=== PATIENT | female | born 1935 | race Caucasian/White ===

== ENCOUNTER 2018-05-16 11:31 | Emergency (ER) | payer BC, MEDICARE ==
[2018-05-16] MEDS ORDERED: SODIUM CHLORIDE 0.9% 500 ML 500 ML IV STA (12:06)
[2018-05-16] MEDS ORDERED: SODIUM CHLORIDE 0.9% 1,000 ML IV STA (12:06)
--- NOTE | 2018-05-16 12:09 | ED ---
Altered Mental Status HPI - General Chief Complaint: Altered Mental Status Stated Complaint: altered/poss UTI Time Seen by Provider: 05/16/18 11:42 Source: family, RN notes reviewed Mode of arrival: ambulatory Limitations: no limitations - History of Present Illness Initial Comments: This is a 82-year-old female with a history of Alzheimer's dementia anemia CVA peripheral neuropathy was brought in by family members for evaluation of increased confusion over last week. She apparently has them straight a family members increased confusion sundowning she has been throwing things in the house he threw away her is diabetic medication this morning. She does seen things including floating things in her coffee which are not there and complained of other things that are not there. she is not eating much except for perales and yogurt he is not drinking fluids and is not cooperating with family members. Her urine does demonstrate a strong odor but she is uncooperative with any evaluation at home. No reports of nausea vomiting diarrhea no reports of fever or cough. MD Complaint: altered mental status, confusion - Related Data Home Medications Medication Instructions Recorded Confirmed Aspirin 81 mg PO DAILY 06/02/14 05/16/18 Digoxin [Digitek] 125 mcg PO DAILY 06/02/14 05/16/18 Furosemide [Lasix] 40 mg PO DAILY 06/02/14 05/16/18 Metoprolol Succinate [Toprol XL] 75 mg PO DAILY 06/02/14 05/16/18 Multivitamins, Thera [Multivitamin] 1 each PO DAILY 06/02/14 05/16/18 Potassium Chloride ER [K-Dur 20] 20 meq PO DAILY 06/02/14 05/16/18 Levothyroxine Sodium [Synthroid] 25 mcg PO DAILY 05/16/18 05/16/18 Metoprolol Succinate [Toprol XL] 50 mg PO HS 05/16/18 05/16/18 Warfarin [Coumadin] 1 mg PO SUMOTUSA 05/16/18 05/16/18 Previous Rx's Medication Instructions Recorded Cephalexin [Keflex] 500 mg PO Q6HR #40 cap 05/16/18 Allergies Allergy/AdvReac Type Severity Reaction Status Date / Time No Known Allergies Allergy Verified 05/16/18 12:32 Review of Systems ROS Statement: Those systems with pertinent positive or pertinent negative responses have been documented in the HPI. ROS Other: All systems not noted in ROS Statement are negative. Past Medical History Past Medical History: Atrial Fibrillation, Cancer, Heart Failure, CVA/TIA, Dementia, Hyperlipidemia, Hypertension, Myocardial Infarction ([place]) Additional Past Medical History / Comment(s): uterine cancer Last Myocardial Infarction Date:: 2008 History of Any Multi-Drug Resistant Organisms: None Reported Past Surgical History: Adenoidectomy, Hysterectomy, Tonsillectomy Additional Past Surgical History / Comment(s): early dementia s/sx noted per family previously on aricept,d/cd per physician Past Anesthesia/Blood Transfusion Reactions: No Reported Reaction Past Psychological History: No Psychological Hx Reported Smoking Status: Never smoker Past Alcohol Use History: None Reported Past Drug Use History: None Reported - Past Family History Son(s) Family Medical History: Cancer Additional Family Medical History / Comment(s): pancreatic Father Family Medical History: Cancer Additional Family Medical History / Comment(s): lung Mother Family Medical History: Cancer Additional Family Medical History / Comment(s): uterine General Exam - General Exam Comments Initial Comments: This is a well-developed sec appearing female who is awake and alert but confused. Limitations: no limitations General appearance: alert, in no apparent distress Head exam: Present: atraumatic, normocephalic, normal inspection Eye exam: Present: normal appearance, PERRL, EOMI. Absent: scleral icterus, conjunctival injection, periorbital swelling ENT exam: Present: mucous membranes dry Neck exam: Present: normal inspection. Absent: tenderness, meningismus, lymphadenopathy Respiratory exam: Present: normal lung sounds bilaterally. Absent: respiratory distress, wheezes, rales, rhonchi, stridor Cardiovascular Exam: Present: irregular rhythm, systolic murmur (Murmur at the mitral region. History of the same.). Absent: diastolic murmur, rubs, gallop, clicks GI/Abdominal exam: Present: soft, normal bowel sounds. Absent: distended, tenderness, guarding, rebound, rigid Extremities exam: Present: normal inspection, full ROM, normal capillary refill. Absent: tenderness, pedal edema, joint swelling, calf tenderness Back exam: Present: normal inspection Neurological exam: Present: alert, altered, CN II-XII intact Psychiatric exam: Present: normal mood, flat affect Skin exam: Present: warm, dry, intact, normal color. Absent: rash Course Vital Signs 01/05/19 11:38 Temperature 97.7 F Pulse Rate 66 Respiratory 18 Rate Blood Pressure 142/84 O2 Sat by Pulse 100 Oximetry Medical Decision Making - Medical Decision Making Patient does have evidence of UTI and dehydration. I did discuss findings with the patient's family members. I did offer admission he would like to take her mother home. Will be placed on oral medication I did advise increase oral fluids and return if any difficulty. - Lab Data Result diagrams: 05/16/18 12:10 05/16/18 12:10 Lab Results 05/16/18 05/16/18 05/16/18 Range/Units 12:10 12:10 12:10 WBC 8.6 (3.8-10.6) k/uL RBC 3.33 L (3.80-5.40) m/uL Hgb 9.6 L (11.4-16.0) gm/dL Hct 30.2 L (34.0-46.0) % MCV 90.6 D (80.0-100.0) fL MCH 28.9 (25.0-35.0) pg MCHC 31.9 (31.0-37.0) g/dL RDW 14.3 (11.5-15.5) % Plt Count 291 (150-450) k/uL Neutrophils % 59 % Lymphocytes % 30 % Monocytes % 7 % Eosinophils % 2 % Basophils % 0 % Neutrophils # 5.1 (1.3-7.7) k/uL Lymphocytes # 2.6 (1.0-4.8) k/uL Monocytes # 0.6 (0-1.0) k/uL Eosinophils # 0.1 (0-0.7) k/uL Basophils # 0.0 (0-0.2) k/uL Hypochromasia Marked Poikilocytosis Slight Sodium (137-145) mmol/L Potassium (3.5-5.1) mmol/L Chloride (98-107) mmol/L Carbon Dioxide (22-30) mmol/L Anion Gap mmol/L BUN (7-17) mg/dL Creatinine (0.52-1.04) mg/dL Est GFR (CKD-EPI)AfAm (>60 ml/min/1.73 sqM) Est GFR (CKD-EPI)NonAf (>60 ml/min/1.73 sqM) Glucose (74-99) mg/dL Calcium (8.4-10.2) mg/dL Magnesium (1.6-2.3) mg/dL Total Bilirubin (0.2-1.3) mg/dL AST (14-36) U/L ALT (9-52) U/L Alkaline Phosphatase (38-126) U/L Ammonia <9 (<30) umol/L Total Creatine Kinase 129 (30-135) U/L CK-MB (CK-2) 1.4 (0.0-2.4) ng/mL CK-MB (CK-2) Rel Index 1.1 Troponin I 0.023 (0.000-0.034) ng/mL Total Protein (6.3-8.2) g/dL Albumin (3.5-5.0) g/dL Urine Color Urine Appearance (Clear) Urine pH (5.0-8.0) Ur Specific [place] (1.001-1.035) Urine Protein (Negative) Urine Glucose (UA) (Negative) Urine Ketones (Negative) Urine Blood (Negative) Urine Nitrite (Negative) Urine Bilirubin (Negative) Urine Urobilinogen (<2.0) mg/dL Ur Leukocyte Esterase (Negative) Urine RBC (0-5) /hpf Urine WBC (0-5) /hpf Ur Squamous Epith Cells (0-4) /hpf Urine Bacteria (None) /hpf Urine Mucus (None) /hpf 05/16/18 05/16/18 Range/Units 12:10 12:10 WBC (3.8-10.6) k/uL RBC (3.80-5.40) m/uL Hgb (11.4-16.0) gm/dL Hct (34.0-46.0) % MCV (80.0-100.0) fL MCH (25.0-35.0) pg MCHC (31.0-37.0) g/dL RDW (11.5-15.5) % Plt Count (150-450) k/uL Neutrophils % % Lymphocytes % % Monocytes % % Eosinophils % % Basophils % % Neutrophils # (1.3-7.7) k/uL Lymphocytes # (1.0-4.8) k/uL Monocytes # (0-1.0) k/uL Eosinophils # (0-0.7) k/uL Basophils # (0-0.2) k/uL Hypochromasia Poikilocytosis Sodium 141 (137-145) mmol/L Potassium 4.9 (3.5-5.1) mmol/L Chloride 110 H (98-107) mmol/L Carbon Dioxide 20 L (22-30) mmol/L Anion Gap 11 mmol/L BUN 18 H (7-17) mg/dL Creatinine 1.23 H (0.52-1.04) mg/dL Est GFR (CKD-EPI)AfAm 48 (>60 ml/min/1.73 sqM) Est GFR (CKD-EPI)NonAf 41 (>60 ml/min/1.73 sqM) Glucose 152 H (74-99) mg/dL Calcium 10.5 H (8.4-10.2) mg/dL Magnesium 2.0 (1.6-2.3) mg/dL Total Bilirubin 0.6 (0.2-1.3) mg/dL AST 32 (14-36) U/L ALT 26 (9-52) U/L Alkaline Phosphatase 81 (38-126) U/L Ammonia (<30) umol/L Total Creatine Kinase (30-135) U/L CK-MB (CK-2) (0.0-2.4) ng/mL CK-MB (CK-2) Rel Index Troponin I (0.000-0.034) ng/mL Total Protein 6.9 (6.3-8.2) g/dL Albumin 3.8 (3.5-5.0) g/dL Urine Color Yellow Urine Appearance Cloudy H (Clear) Urine pH 6.0 (5.0-8.0) Ur Specific [place] 1.012 (1.001-1.035) Urine Protein Trace H (Negative) Urine Glucose (UA) Negative (Negative) Urine Ketones Negative (Negative) Urine Blood Small H (Negative) Urine Nitrite Positive H (Negative) Urine Bilirubin Negative (Negative) Urine Urobilinogen 3.0 (<2.0) mg/dL Ur Leukocyte Esterase Large H (Negative) Urine RBC 2 (0-5) /hpf Urine WBC >182 H (0-5) /hpf Ur Squamous Epith Cells 1 (0-4) /hpf Urine Bacteria Moderate H (None) /hpf Urine Mucus Rare H (None) /hpf - EKG Data -: EKG Interpreted by Me EKG shows normal: sinus rhythm - Radiology Data Radiology results: report reviewed (Review the imaging no acute findings), image reviewed Disposition Clinical Impression: Urinary tract infection, Delirium due to general medical condition, Dehydration , Renal insufficiency, Chronic anemia Disposition: HOME SELF-CARE Condition: Stable Instructions: Altered Mental Status (ED), Urinary Tract Infection in Women (ED) , Dehydration (ED) Prescriptions: Cephalexin [Keflex] 500 mg PO Q6HR #40 cap Is patient prescribed a controlled substance at d/c from ED?: No Referrals: Mihir Mckoy DO [Primary Care Provider] - 1-2 days
[2018-05-16 12:40] LABS: Basophils % (A) 0 %; Eosinophils # (A) 0.1 k/uL (0-0.7); Eosinophils % (A) 2 %; HCT 30.2 % (34.0-46.0); HGB 9.6 gm/dL (11.4-16.0); Hypochromasia Marked; Lymphocytes # (A) 2.6 k/uL (1.0-4.8); Lymphocytes % (A) 30 %; MCH 28.9 pg (25.0-35.0); MCHC 31.9 g/dL (31.0-37.0); Mean Platelet Volume 7.1; Monocytes # (A) 0.6 k/uL (0-1.0); Monocytes % (A) 7 %; Neutrophils # (A) 5.1 k/uL (1.3-7.7); Neutrophils % (A) 59 %; Platelet Count 291 k/uL (150-450); Poikilocytosis Slight; RBC 3.33 m/uL (3.80-5.40); RDW 14.3 % (11.5-15.5); WBC 8.6 k/uL (3.8-10.6)
[2018-05-16 12:49] LABS: Calcium 10.5 mg/dL (8.4-10.2); Potassium 4.9 mmol/L (3.5-5.1)
[2018-05-16 12:50] LABS: Albumin 3.8 g/dL (3.5-5.0); Total Bilirubin 0.6 mg/dL (0.2-1.3); Total Protein 6.9 g/dL (6.3-8.2)
[2018-05-16 12:53] LABS: MCV 90.6 fL (80.0-100.0)
--- NOTE | 2018-05-16 13:07 | CT ---
EXAMINATION TYPE: CT brain wo con DATE OF EXAM: 05/16/2018 COMPARISON: Previous study dated 06/29/2014. HISTORY: Altered mental status CT DLP: 117.4 mGycm Automated exposure control for dose reduction was used. FINDINGS: There are generalized changes of sulcal prominence and ventriculomegaly, compatible with atrophic ajit nge. There is moderate periventricular white matter lucency, compatible with chronic white matter isc hemic change. There is extensive vascular calcification. There is no acute focal lesion, mass effect or midline shift identified. I do not see evidence of intracranial blood. Visualized portions of the paranasal sinuses and mastoids are clear. The bony calvarium is intact. IMPRESSION: 1. NO ACUTE INTRACRANIAL ABNORMALITY. 2. ATROPHIC CHANGE. 3. CHRONIC WHITE MATTER ISCHEMIC CHANGE.
[2018-05-16 13:18] LABS: Creatine Kinase MB 1.4 ng/mL (0.0-2.4); Troponin I 0.023 ng/mL (0.000-0.034)
[2018-05-16 14:08] LABS: Appearance,Urine Cloudy (Clear); Bacteria,Urine Moderate /hpf; Bilirubin,Urine Negative (Negative); Blood,Urine Small (Negative); Color,Urine Yellow; Glucose,Urine (UA) Negative (Negative); Ketones,Urine Negative (Negative); Leukocyte Esterase,Urine Large (Negative); Mucus,Urine Rare /hpf; Nitrite,Urine Positive (Negative); Protein,Urine Trace (Negative); RBC,Urine 2 /hpf (0-5); Specific Gravity,Urine 1.012 (1.001-1.035); Squamous Epithelial Cell,Urine 1 /hpf (0-4); WBC,Urine >182 /hpf (0-5)
[2018-05-16 15:19] VITALS: BP 174/88; PULSE 55; RESP 16; TEMP 98.1
--- NOTE | 2018-05-18 06:23 | XR ---
EXAMINATION TYPE: XR chest 2V DATE OF EXAM: 05/16/2018 COMPARISON: 06/02/2014 HISTORY: Altered mental status. Cough TECHNIQUE: Frontal and lateral views of the chest are obtained. FINDINGS: There is coarsening of the interstitial pulmonary markings. Heart is slightly enlarged. Th ere is no gross heart failure. There is no pleural effusion. Thoracic aorta is atheromatous. Bony tho rax appears intact. There is osteopenia. IMPRESSION: Mild pulmonary fibrosis. No heart failure. No adverse change overall compared to old bouchra m.
== END 2018-05-16 15:24 | disposition home or self-care (01) ==
LOC: EC 11:31
DX: E86.0 Dehydration (principal); N39.0 Urinary tract infection, site not specified; F05 Delirium due to known physiological condition; N28.9 Disorder of kidney and ureter, unspecified; D64.9 Anemia, unspecified; I48.91 Unspecified atrial fibrillation; I11.0 Hypertensive heart disease with heart failure; I50.9 Heart failure, unspecified; I25.2 Old myocardial infarction; Z86.73 Personal history of transient ischemic attack (TIA), and cerebral infarction without residual deficits; Z85.42 Personal history of malignant neoplasm of other parts of uterus; G30.9 Alzheimer's disease, unspecified; F02.80 Dementia in other diseases classified elsewhere, unspecified severity, without behavioral disturbance, psychotic disturbance, mood disturbance, and anxiety; Z79.01 Long term (current) use of anticoagulants; Z79.82 Long term (current) use of aspirin; Z79.899 Other long term (current) drug therapy
CPT/HCPCS: 99285 ×2; 96365 ×2; 36415; 93005; 80053; 82140; 82550; 82553; 83735; 84484; 85025; 81001; 71046; 70450; J0696

== ENCOUNTER 2018-07-24 13:48 | Inpatient (IN) | payer MEDICARE ==
[2018-07-24] MEDS ORDERED: KETOROLAC 30 MG/ML 1 ML VIAL IVP STA (14:25)
[2018-07-24] MEDS ORDERED: SODIUM CHLORIDE 0.9% 500 ML 500 ML IV STA (14:25)
--- NOTE | 2018-07-24 14:32 | ED ---
General Adult HPI - General Chief complaint: Back Pain/Injury Stated complaint: Back pain, SOB Time Seen by Provider: 07/24/18 14:00 Source: patient, RN notes reviewed Mode of arrival: ambulatory Limitations: no limitations - History of Present Illness Initial comments: This is an 82-year-old female who is brought in by the granddaughter's for multiple reasons. They think she may have a urinary tract infection. Patient also complains of some mid back pain secondary to falling onto her buttocks earlier in the week. Patient also has been noted to be somewhat short of breath per one of the granddaughter's. Patient herself has no current complaints but does state in the morning when she wakes up she has quite a bit of back pain. Patient denies any chest pain or palpitations. Patient has had no recent fevers or chills according to the granddaughter's. Patient has not complained of any abdominal pain in his been no nausea or vomiting. Patient has not fallen and hit her head or her neck. - Related Data Home Medications Medication Instructions Recorded Confirmed Aspirin 81 mg PO DAILY 06/02/14 07/24/18 Digoxin [Digitek] 125 mcg PO DAILY 06/02/14 07/24/18 Furosemide [Lasix] 40 mg PO DAILY PRN 06/02/14 07/24/18 Multivitamins, Thera [Multivitamin] 1 tab PO DAILY 06/02/14 07/24/18 Potassium Chloride ER [K-Dur 20] 20 meq PO DAILY PRN 06/02/14 07/24/18 Warfarin [Coumadin] 1 mg PO SUMOWEFR 05/16/18 07/24/18 Carvedilol 25 mg PO BID 07/24/18 07/24/18 Nitrofurantoin Monohyd/M-Cryst 100 mg PO BID 07/24/18 07/24/18 [Macrobid] Warfarin [Coumadin] 2 mg PO TUTHSA 07/24/18 07/24/18 Allergies Allergy/AdvReac Type Severity Reaction Status Date / Time No Known Allergies Allergy Verified 07/24/18 15:16 Review of Systems ROS Statement: Those systems with pertinent positive or pertinent negative responses have been documented in the HPI. ROS Other: All systems not noted in ROS Statement are negative. Past Medical History Past Medical History: Atrial Fibrillation, Cancer, Heart Failure, CVA/TIA, Dementia, Hyperlipidemia, Hypertension, Myocardial Infarction ([place]) Additional Past Medical History / Comment(s): uterine cancer Last Myocardial Infarction Date:: 2008 History of Any Multi-Drug Resistant Organisms: None Reported Past Surgical History: Adenoidectomy, Hysterectomy, Tonsillectomy Additional Past Surgical History / Comment(s): early dementia s/sx noted per family previously on aricept,d/cd per physician Past Anesthesia/Blood Transfusion Reactions: No Reported Reaction Past Psychological History: No Psychological Hx Reported Smoking Status: Never smoker Past Alcohol Use History: None Reported Past Drug Use History: None Reported - Past Family History Son(s) Family Medical History: Cancer Additional Family Medical History / Comment(s): pancreatic Father Family Medical History: Cancer Additional Family Medical History / Comment(s): lung Mother Family Medical History: Cancer Additional Family Medical History / Comment(s): uterine General Exam - General Exam Comments Initial Comments: GENERAL: Patient is well-developed and well-nourished. Patient is nontoxic and well- hydrated and is in no acute distress. ENT: Neck is soft and supple. No significant lymphadenopathy is noted. Oropharynx is clear. Moist mucous membranes. Neck has full range of motion without eliciting any pain. EYES: The sclera were anicteric and conjunctiva were pink and moist. Extraocular movements were intact and pupils were equal round and reactive to light. Eyelids were unremarkable. PULMONARY: Unlabored respirations. Good breath sounds bilaterally. No audible rales rhonchi or wheezing was noted. CARDIOVASCULAR: There is a regular rate and rhythm without any murmurs gallops or rubs. ABDOMEN: Soft and nontender with normal bowel sounds. No palpable organomegaly was noted. There is no palpable pulsatile mass. SKIN: Skin is clear with no lesions or rashes and otherwise unremarkable. NEUROLOGIC: Patient is alert and oriented 2. Cranial nerves II through XII are grossly intact. Motor and sensory are also intact. Normal speech, volume and content. Symmetrical smile. MUSCULOSKELETAL: Normal extremities with adequate strength and full range of motion. No lower extremity swelling or edema. No calf tenderness. Patient had no back tenderness on palpation LYMPHATICS: No significant lymphadenopathy is noted PSYCHIATRIC: Normal psychiatric evaluation. Limitations: no limitations Course Vital Signs 07/24/18 07/24/18 14:02 15:41 Temperature 98.2 F Pulse Rate 50 L 52 L Respiratory 18 16 Rate Blood Pressure 123/52 145/80 O2 Sat by Pulse 98 97 Oximetry Medical Decision Making - Medical Decision Making EKG shows atrial fibrillation at 50 bpm QRS is 84 Q-T intervals 448 QTC is 408. EKG shows no ST segment elevation or depression. Chest x-ray shows no acute abnormality. X-ray lumbar spine and thoracic spine show no acute injury. Patient's hemoglobin was 7.0 I gave the patient 1 unit of packed red blood cells. Patient's heart rate also took down to low 40s while on the monitor. - Lab Data Result diagrams: 07/24/18 14:39 07/24/18 14:39 Lab Results 07/24/18 07/24/18 07/24/18 Range/Units 14:39 14:39 14:39 WBC 6.6 (3.8-10.6) k/uL RBC 3.16 L (3.80-5.40) m/uL Hgb 7.0 L (11.4-16.0) gm/dL Hct 23.4 L (34.0-46.0) % MCV 73.9 L (80.0-100.0) fL MCH 22.1 L (25.0-35.0) pg MCHC 29.9 L (31.0-37.0) g/dL RDW 17.5 H (11.5-15.5) % Plt Count 212 (150-450) k/uL Neutrophils % 52 % Lymphocytes % 28 % Monocytes % 11 % Eosinophils % 6 % Basophils % 1 % Neutrophils # 3.4 (1.3-7.7) k/uL Lymphocytes # 1.8 (1.0-4.8) k/uL Monocytes # 0.7 (0-1.0) k/uL Eosinophils # 0.4 (0-0.7) k/uL Basophils # 0.0 (0-0.2) k/uL Hypochromasia Marked Poikilocytosis Slight Anisocytosis Slight Microcytosis Moderate Sodium 139 (137-145) mmol/L Potassium 5.0 (3.5-5.1) mmol/L Chloride 108 H (98-107) mmol/L Carbon Dioxide 21 L (22-30) mmol/L Anion Gap 10 mmol/L BUN 22 H (7-17) mg/dL Creatinine 1.24 H (0.52-1.04) mg/dL Est GFR (CKD-EPI)AfAm 47 (>60 ml/min/1.73 sqM) Est GFR (CKD-EPI)NonAf 41 (>60 ml/min/1.73 sqM) Glucose 108 H (74-99) mg/dL Calcium 10.0 (8.4-10.2) mg/dL Magnesium 1.9 (1.6-2.3) mg/dL Total Bilirubin 0.6 (0.2-1.3) mg/dL AST 21 (14-36) U/L ALT 23 (9-52) U/L Alkaline Phosphatase 81 (38-126) U/L NT-Pro-B Natriuret Pep 3640 pg/mL Total Protein 6.4 (6.3-8.2) g/dL Albumin 3.5 (3.5-5.0) g/dL Urine Color Urine Appearance (Clear) Urine pH (5.0-8.0) Ur Specific [place] (1.001-1.035) Urine Protein (Negative) Urine Glucose (UA) (Negative) Urine Ketones (Negative) Urine Blood (Negative) Urine Nitrite (Negative) Urine Bilirubin (Negative) Urine Urobilinogen (<2.0) mg/dL Ur Leukocyte Esterase (Negative) Digoxin ng/mL 07/24/18 07/24/18 Range/Units 14:39 15:29 WBC (3.8-10.6) k/uL RBC (3.80-5.40) m/uL Hgb (11.4-16.0) gm/dL Hct (34.0-46.0) % MCV (80.0-100.0) fL MCH (25.0-35.0) pg MCHC (31.0-37.0) g/dL RDW (11.5-15.5) % Plt Count (150-450) k/uL Neutrophils % % Lymphocytes % % Monocytes % % Eosinophils % % Basophils % % Neutrophils # (1.3-7.7) k/uL Lymphocytes # (1.0-4.8) k/uL Monocytes # (0-1.0) k/uL Eosinophils # (0-0.7) k/uL Basophils # (0-0.2) k/uL Hypochromasia Poikilocytosis Anisocytosis Microcytosis Sodium (137-145) mmol/L Potassium (3.5-5.1) mmol/L Chloride (98-107) mmol/L Carbon Dioxide (22-30) mmol/L Anion Gap mmol/L BUN (7-17) mg/dL Creatinine (0.52-1.04) mg/dL Est GFR (CKD-EPI)AfAm (>60 ml/min/1.73 sqM) Est GFR (CKD-EPI)NonAf (>60 ml/min/1.73 sqM) Glucose (74-99) mg/dL Calcium (8.4-10.2) mg/dL Magnesium (1.6-2.3) mg/dL Total Bilirubin (0.2-1.3) mg/dL AST (14-36) U/L ALT (9-52) U/L Alkaline Phosphatase (38-126) U/L NT-Pro-B Natriuret Pep pg/mL Total Protein (6.3-8.2) g/dL Albumin (3.5-5.0) g/dL Urine Color Dark Yellow Urine Appearance Clear (Clear) Urine pH 5.5 (5.0-8.0) Ur Specific [place] 1.016 (1.001-1.035) Urine Protein Trace H (Negative) Urine Glucose (UA) Negative (Negative) Urine Ketones Negative (Negative) Urine Blood Negative (Negative) Urine Nitrite Negative (Negative) Urine Bilirubin Negative (Negative) Urine Urobilinogen 4.0 (<2.0) mg/dL Ur Leukocyte Esterase Negative (Negative) Digoxin 1.8 ng/mL Disposition Clinical Impression: Bradycardia, Dyspnea, Anemia Disposition: ADMITTED IP TO THIS [facility] Referrals: Mihir Mckoy DO [Primary Care Provider] - 1-2 days Time of Disposition: 16:10
[2018-07-24 15:01] LABS: Anisocytosis Slight; Basophils % (A) 1 %; Eosinophils # (A) 0.4 k/uL (0-0.7); Eosinophils % (A) 6 %; HCT 23.4 % (34.0-46.0); Hypochromasia Marked; Lymphocytes # (A) 1.8 k/uL (1.0-4.8); Lymphocytes % (A) 28 %; MCH 22.1 pg (25.0-35.0); MCHC 29.9 g/dL (31.0-37.0); MCV 73.9 fL (80.0-100.0); Microcytosis Moderate; Monocytes # (A) 0.7 k/uL (0-1.0); Monocytes % (A) 11 %; Neutrophils # (A) 3.4 k/uL (1.3-7.7); Neutrophils % (A) 52 %; Platelet Count 212 k/uL (150-450); Poikilocytosis Slight; RBC 3.16 m/uL (3.80-5.40); RDW 17.5 % (11.5-15.5); WBC 6.6 k/uL (3.8-10.6)
[2018-07-24 15:12] LABS: Albumin 3.5 g/dL (3.5-5.0); Magnesium 1.9 mg/dL (1.6-2.3); Total Bilirubin 0.6 mg/dL (0.2-1.3); Total Protein 6.4 g/dL (6.3-8.2)
--- NOTE | 2018-07-24 15:12 | XR ---
EXAMINATION TYPE: XR chest 2V DATE OF EXAM: 07/24/2018 COMPARISON: 05/16/2018 TECHNIQUE: PA and lateral views submitted. HISTORY: Pain FINDINGS: The lungs are clear and there is no pneumothorax, pleural effusion, or focal pneumonia. Heart is en larged and is atherosclerotic change of the aorta. No pneumothorax. Hypertrophic and degenerative ajit nge of the vertebral column. Diffuse osteopenia. Atherosclerotic change aorta. IMPRESSION: 1. Cardiomegaly with no definite acute infiltrate. Correlate for COPD..
--- NOTE | 2018-07-24 15:14 | XR ---
EXAM TYPE: LUMBAR SPINE X RAY SERIES COMPARISON: NONE HISTORY: Pain TECHNIQUE: 4 views are submitted. FINDINGS: Alignment is anatomic. The pedicles are intact. The transverse processes are intact. There is no s pondylolysis or spondylolisthesis. Diffuse osteopenia noted. There are vascular calcifications and s urgical clips. Arthropathy of the right SI joint. Facet arthropathy L5-S1 and there is multilevel deg enerative disc disease with most marked findings at L4-5 and L5-S1. IMPRESSION: 1. Diffuse osteopenia with multilevel facet arthropathy and degenerative disc disease. No compression deformities identified..
--- NOTE | 2018-07-24 15:15 | XR ---
EXAMINATION TYPE: XR thoracic spine 2V DATE OF EXAM: 07/24/2018 COMPARISON: NONE HISTORY: Pain Alignment is anatomic. There is no compression deformities. Diffuse osteopenia noted. There is multi level degenerative disc disease. Atherosclerotic change of the aorta. No definite compression deformi ties. Degenerative change lower cervical spine. IMPRESSION: 1. Diffuse osteopenia and multilevel severe degenerative disc disease.
[2018-07-24 15:34] LABS: Appearance,Urine Clear (Clear); Bilirubin,Urine Negative (Negative); Blood,Urine Negative (Negative); Color,Urine Dark Yellow; Glucose,Urine (UA) Negative (Negative); Ketones,Urine Negative (Negative); Leukocyte Esterase,Urine Negative (Negative); Nitrite,Urine Negative (Negative); PH, Urine 5.5 (5.0-8.0); Protein,Urine Trace (Negative); Specific Gravity,Urine 1.016 (1.001-1.035)
[2018-07-24 16:08] LABS: INR 2.1 (<1.2); Partial Thromboplastin Time 26.2 sec (22.0-30.0); Prothrombin Time 20.3 sec (9.0-12.0)
[2018-07-24] MEDS ORDERED: SODIUM CHLORIDE 0.9% 1,000 ML IV ONE (16:10)
[2018-07-24] MEDS ORDERED: ZOLPIDEM 5 MG TAB PO PRN (22:50)
[2018-07-24] MEDS ORDERED: WARFARIN 1 MG TAB PO SCH (23:00)
[2018-07-25 03:10] LABS: Anisocytosis Slight; Basophils % (A) 0 %; Eosinophils # (A) 0.5 k/uL (0-0.7); Eosinophils % (A) 5 %; HCT 24.7 % (34.0-46.0); HGB 7.4 gm/dL (11.4-16.0); Hypochromasia Marked; Lymphocytes # (A) 1.8 k/uL (1.0-4.8); Lymphocytes % (A) 21 %; MCH 23.1 pg (25.0-35.0); MCV 76.8 fL (80.0-100.0); Mean Platelet Volume 6.3; Microcytosis Slight; Monocytes # (A) 0.7 k/uL (0-1.0); Monocytes % (A) 8 %; Neutrophils # (A) 5.3 k/uL (1.3-7.7); Neutrophils % (A) 63 %; Platelet Count 209 k/uL (150-450); Poikilocytosis Moderate; RBC 3.22 m/uL (3.80-5.40); WBC 8.4 k/uL (3.8-10.6)
[2018-07-25 03:39] LABS: Digoxin 1.1 ng/mL
--- NOTE | 2018-07-25 08:33 | P.HPIM ---
History of Present Illness H&P Date: 07/25/18 This is a 78-year-old female with a past medical history of atrial fibrillation, hypertension, hyperlipidemia, coronary artery disease and dementia. Patient was brought to the emergency department by her granddaughter for back pain secondary to a fall earlier in the week. Family states patient has progressively been declining over the last month she's had over a 15 pound weight loss, has been more confused and falling at least 3 times a week. Her hemoglobin was 7.0, she is on Coumadin for anticoagulation for her atrial fibrillation, INR was 2.1, PTT 20.3. She did receive 1 unit of packed red blood cells. Repeat hemoglobin 7.4, hematocrit 24.7, BUN 22, creatinine 1.24, stool occult was negative, urinalysis was negative for any infection. EKG shows atrial fibrillation with slow response at 50 bpm, no ST segment elevation or depression. Chest x-ray did not show any acute abnormalities. Thoracic x-ray showed diffuse osteopenia and multilevel severe degenerative disc disease, lumbar spine show diffuse osteopenia with multilevel facet arthropathy and degenerative disc disease, no compression deformities noted. Patient denies any chest pain, positive for shortness breath and audible wheezing, no palpitations, no nausea, vomiting, or diarrhea or dark tarry stools, no abdominal pain. Cardiology consulted for a.fib with bradycardia. Review of Systems Constitutional: Reports fatigue, Reports weakness, Denies chills, Denies fever Ears, nose, mouth and throat: Denies dysphagia, Denies epistaxis, Denies headache, Denies nasal congestion, Denies nose pain, Denies odynophagia Cardiovascular: Reports irregular heart beat, Reports shortness of breath, Denies edema, Denies lightheadedness, Denies orthopnea, Denies palpitations, Denies rapid heart beat, Denies syncope Respiratory: Reports dyspnea, Reports wheezing, Denies cough with sputum, Denies pain Gastrointestinal: Denies change in bowel habits, Denies coffee ground emesis, Denies constipation, Denies diarrhea, Denies dyspepsia, Denies heartburn, Denies hematemesis, Denies indigestion, Denies melena, Denies nausea, Denies vomiting Genitourinary: Denies dysuria, Denies hematuria, Denies nocturia, Denies urgency Musculoskeletal: Denies atrophy, Denies frequent falls, Denies gait dysfunction, Denies leg numbness/tingling Integumentary: Denies acne, Denies growths, Denies lesions, Denies rash, Denies wounds Neurological: Reports gait dysfunction, Reports weakness, Denies confusion, Denies headaches, Denies memory loss, Denies migraines, Denies numbness, Denies paralysis, Denies paresthesias, Denies seizures, Denies syncope Past Medical History Past Medical History: Atrial Fibrillation, Cancer, Heart Failure, CVA/TIA, Dementia, Hyperlipidemia, Hypertension, Myocardial Infarction ([place]) Additional Past Medical History / Comment(s): uterine cancer Last Myocardial Infarction Date:: 2008 History of Any Multi-Drug Resistant Organisms: None Reported Past Surgical History: Adenoidectomy, Hysterectomy, Tonsillectomy Additional Past Surgical History / Comment(s): early dementia s/sx noted per family previously on aricept,d/cd per physician Past Anesthesia/Blood Transfusion Reactions: No Reported Reaction Past Psychological History: No Psychological Hx Reported Smoking Status: Never smoker Past Alcohol Use History: None Reported Past Drug Use History: None Reported - Past Family History Son(s) Family Medical History: Cancer Additional Family Medical History / Comment(s): pancreatic Father Family Medical History: Cancer Additional Family Medical History / Comment(s): lung Mother Family Medical History: Cancer Additional Family Medical History / Comment(s): uterine Medications and Allergies Home Medications Medication Instructions Recorded Confirmed Type Furosemide [Lasix] 40 mg PO DAILY PRN 06/02/14 07/24/18 History Multivitamins, Thera [Multivitamin 1 tab PO DAILY 06/02/14 07/24/18 History (formulary)] Potassium Chloride ER [K-Dur 20] 20 meq PO DAILY PRN 06/02/14 07/24/18 History Acetaminophen Tab [Tylenol] 1,000 mg PO Q8HR PRN 30 Days tab 07/26/18 Rx Azithromycin [Zithromax] 500 mg PO DAILY #3 tab 07/26/18 Rx Carvedilol [Coreg] 6.25 mg PO BID-W/MEALS #60 tab 07/26/18 Rx Multivitamins, Thera [Multivitamin 1 each PO DAILY@1200 tab 07/26/18 Rx (formulary)] amLODIPine [Norvasc] 5 mg PO DAILY #30 tab 07/26/18 Rx Allergies Allergy/AdvReac Type Severity Reaction Status Date / Time No Known Allergies Allergy Verified 07/24/18 15:16 Physical Exam Vitals: Vital Signs Temp Pulse Pulse Resp BP BP Pulse Ox 07/25/18 00:05 17 07/24/18 23:58 97.8 F 67 17 189/77 93 L 07/24/18 20:42 97.9 F 60 16 161/57 96 07/24/18 20:40 97.9 F 60 16 161/57 96 07/24/18 20:20 49 L 16 07/24/18 18:29 97.5 F L 51 L 16 172/93 97 07/24/18 17:59 98.0 F 47 L 16 151/70 97 07/24/18 17:49 98.1 F 46 L 16 162/58 96 07/24/18 17:04 97.4 F L 44 L 16 168/67 97 07/24/18 16:48 97.9 F 46 L 16 158/77 96 07/24/18 15:41 52 L 16 145/80 97 07/24/18 14:02 98.2 F 50 L 18 123/52 98 Intake and Output 07/24/18 07/25/18 07/25/18 22:59 06:59 14:59 Intake Total 1989 Balance 1989 Intake: Intake, IV Titration 1300 Amount Sodium Chloride 0.9% 1, 800 000 ml @ 100 mls/hr IV . Q10H ONE Rx#:[id number] Sodium Chloride 0.9% 500 500 ml 500 ml @ 999 mls/hr IV .Q31M STA Rx#:[id number] Oral 380 Blood Product 310 Rc Pheresis 2 As3 Unit 310 [id number] Other: Voiding Method Toilet # Voids 1 - Constitutional General appearance: average body habitus, cooperative, no acute distress - EENT Eyes: EOMI, PERRLA, normal appearance ENT: normal oropharynx - Neck Neck: no lymphadenopathy, no normal ROM, no thyromegaly - Respiratory Respiratory: bilateral: wheezing, negative: diminished, dullness, rales, rhonchi - Cardiovascular Rhythm: irregularly irregular Heart sounds: normal: S1, S2 - Gastrointestinal General gastrointestinal: no decreased bowel sounds, no distended, no hepatomegaly, normal bowel sounds, no organomegaly, soft, no splenomegaly, no tenderness - Neurologic Neurologic: CNII-XII intact - Musculoskeletal Musculoskeletal: gait normal, generalized weakness, strength equal bilaterally - Psychiatric Pt confused, able to follow simple commands Results CBC & Chem 7: 07/26/18 06:40 07/26/18 06:40 Labs: Abnormal Lab Results - Last 24 Hours (Table) 07/24/18 07/24/18 07/24/18 Range/Units 14:39 14:39 14:39 RBC 3.16 L (3.80-5.40) m/uL Hgb 7.0 L (11.4-16.0) gm/dL Hct 23.4 L (34.0-46.0) % MCV 73.9 L (80.0-100.0) fL MCH 22.1 L (25.0-35.0) pg MCHC 29.9 L (31.0-37.0) g/dL RDW 17.5 H (11.5-15.5) % PT 20.3 H (9.0-12.0) sec INR 2.1 H (<1.2) Chloride 108 H (98-107) mmol/L Carbon Dioxide 21 L (22-30) mmol/L BUN 22 H (7-17) mg/dL Creatinine 1.24 H (0.52-1.04) mg/dL Glucose 108 H (74-99) mg/dL Urine Protein (Negative) Crossmatch 07/24/18 07/24/18 07/25/18 Range/Units 15:29 16:01 02:56 RBC 3.22 L (3.80-5.40) m/uL Hgb 7.4 L (11.4-16.0) gm/dL Hct 24.7 L (34.0-46.0) % MCV 76.8 L (80.0-100.0) fL MCH 23.1 L (25.0-35.0) pg MCHC 30.0 L (31.0-37.0) g/dL RDW 18.0 H (11.5-15.5) % PT (9.0-12.0) sec INR (<1.2) Chloride (98-107) mmol/L Carbon Dioxide (22-30) mmol/L BUN (7-17) mg/dL Creatinine (0.52-1.04) mg/dL Glucose (74-99) mg/dL Urine Protein Trace H (Negative) Crossmatch See Detail Assessment and Plan Plan: 1. Shortness of breath secondary to bronchitis. Chest x-ray clear for any infiltrates, albuterol nebulizers and azithromycin 500 mg daily ordered. 2. Acute blood loss anemia s/p 1 unit of PRBC. Guaiac was negative, had long discussion with family who do not wish to pursue any GI studies at this time. Will hold Coumadin, repeat CBC and transfuse if necessary. 3. Severe protein calorie malnutrition secondary to decreased oral and dietary intake related to dementia. Will encourage oral dietary intake and also offer ensure with meals. 4. Back pain secondary to fall. PT/OT consulted, x-rays did not reveal any acute fracture. 5. Atrial fibrillation with bradycarida. Cardiology consulted, hold digoxin and carvediolol for now, hold anticoagulation due to anemia and increased risk for falls. 6. Hypertension. Carvedilol on hold due to bradycardia will continue to monitor 7. Dementia with worsening symptoms. Not currently on medications, most likely would not provide benefit at this point 8. GERD. Protonix 9. Insomnia. Ambien 5 mg at at bedtime. DVT prophylaxis. SCDs and early ambulation GI prophylaxis. Protonix The above impression and plan of care have been discussed and directed by sign ing physician. Birgit Schuster nurse practitioner acting as scribe for signing physician.
[2018-07-25] MEDS ORDERED: NITROFURANTOIN MONOHYD/M-CRYST 100 MG CAP PO SCH (09:00)
[2018-07-25] MEDS ORDERED: ASPIRIN 81 MG PO SCH (09:00)
[2018-07-25] MEDS: MULTIVITAMINS, THERA 1 EACH TAB PO SCH (10:26)
[2018-07-25] MEDS: AZITHROMYCIN 500 MG TAB PO SCH (10:26)
[2018-07-25] MEDS: FUROSEMIDE 40 MG TAB PO PRN (10:26)
[2018-07-25] MEDS: ALBUTEROL NEBULIZED 2.5 MG/3 ML INHALATION PRN ×2 (11:23→15:14)
--- NOTE | 2018-07-25 13:47 | P.CRDCN ---
History of Present Illness Consult date: 07/25/18 Reason for Consult (text): Bradycardia History of present illness: This is an 82-year-old female patient with past medical history of chronic atrial fibrillation maintained on Coumadin, hypertension, hyperlipidemia, coronary artery disease, dementia. Patient follows with a Dr. 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 Patient has had long-term atrial fibrillation and has been on digoxin for long period of time. Family gives history that Dr. Mckoy placed her on Coreg 2 months ago. She has had bradycardia and last week family decrease the Coreg in half but this was resumed back at full dose by Dr. Mckoy. Patient has continued to have bradycardia for the past couple weeks. Patient came into the hospital due to back pain that seems to be chronic and underwent x-rays of the lumbar spine and thoracic spine that found multilevel severe degenerative disc disease. Patient's initial hemoglobin was low at 7 and patient was transfused 1 unit of packed RBCs. Repeat hemoglobin is at 7.4. Her INR is at 2.1 and she has been continued on Coumadin. TSH 4.130. ProBNP 3640. Urinalysis was negative for infection. Initial dig level was 1.8 and repeat 1.1. Digoxin and Coreg have been on hold. Chest x-ray reveals cardiomegaly with no definite acute infiltrate. Correlate for COPD. Blood pressure 161/75 and pulse ox 96% on room air. Influenza testing has been negative. Patient's heart rates have been running down to 39 during the evening and today in the low 60s. The patient has had increased shortness of breath last evening. EKG reveals atrial fibrillation at rate of 70. Social history: The patient is a nonsmoker, no illicit drug use, no alcohol use. She lives at home with her ample [employer] [place] and has a paid caregiver in the morning family in the evenings. She does not have home O2. No CPAP. Review Of Systems: Constitutional: No fever, reports chills, no night sweats. No weight change. Reports weakness, reports fatigue. No daytime sleepiness. EENT: No headache. No blurred vision or double vision, no loss of vision. Reports loss of Hearing, no ringing in the ears, no dizziness. No nasal drai nage or congestion. No epistaxis. No sore throat. Lungs: Reports shortness of breath, no sputum production. No wheezing. Cardiovascular: No chest pain, no lower extremity edema. No palpitations. No paroxysmal nocturnal dyspnea. No orthopnea. No lightheadedness or dizziness. No syncopal episodes. Abdominal: No abdominal pain. No nausea, vomiting. No diarrhea. No constipation. No bloody or tarry stools. No loss of appetite. Genitourinary: No dysuria, increased frequency, urgency. No urinary retention. Musculoskeletal: No myalgias. No muscle weakness, no gait dysfunction, no frequent falls. No back pain. No neck pain. Integumentary: No wounds, no lesions. No rash or pruritus. No unusual bruising. No change in hair or nails. Neurologic: No aphasia. No facial droop. No change in mentation. No head injury. No headache. No paralysis. No paresthesia. Psychiatric: No depression. No anxiety. No mood swings. Endocrine: No abnormal blood sugars. No weight change. No excessive sweating or thirst. Reports cold intolerance. No weight change. Gen: This is an 82-year-old female. She is in bed and appears to be having mild respiratory distress. HEENT: Head is atraumatic, normocephalic. Pupils equal, round. Sclerae is anicteric. NECK: Supple. No JVD. No lymphadenopathy. No thyromegaly. LUNGS: Diminished bilaterally. No intercostal retractions. HEART: Irregularly irregular. Systolic murmur. ABDOMEN: Soft. Bowel sounds are present. No masses. No tenderness. EXTREMITIES: No pedal edema. No calf tenderness. NEUROLOGICAL: Patient is awake, alert and oriented x3. Cranial nerves 2 through 12 are grossly intact. Assessment: Acute blood loss anemia status post transfusion Significant bradycardia Chronic atrial fibrillation Hypertension Hyperlipidemia Coronary artery disease Shortness of breath secondary to bronchitis Dementia Back pain secondary to severe degenerative disc disease Frequent falls Plan: Digoxin will be discontinued completely Coreg 6.25 mg twice daily will be started tomorrow morning Obtain 2-D echocardiogram and Doppler study to assess cardiac structures and function Discontinue aspirin and Coumadin Please complete full anemia workup. Coumadin will remain on hold. Nurse practitioner note has been reviewed, I agree with documented findings and plan of care. Patient was seen and examined. Past Medical History Past Medical History: Atrial Fibrillation, Cancer, Heart Failure, CVA/TIA, Dementia, Hyperlipidemia, Hypertension, Myocardial Infarction ([place]) Additional Past Medical History / Comment(s): uterine cancer Last Myocardial Infarction Date:: 2008 History of Any Multi-Drug Resistant Organisms: None Reported Past Surgical History: Adenoidectomy, Hysterectomy, Tonsillectomy Additional Past Surgical History / Comment(s): early dementia s/sx noted per family previously on aricept,d/cd per physician Past Anesthesia/Blood Transfusion Reactions: No Reported Reaction Past Psychological History: No Psychological Hx Reported Smoking Status: Never smoker Past Alcohol Use History: None Reported Past Drug Use History: None Reported - Past Family History Son(s) Family Medical History: Cancer Additional Family Medical History / Comment(s): pancreatic Father Family Medical History: Cancer Additional Family Medical History / Comment(s): lung Mother Family Medical History: Cancer Additional Family Medical History / Comment(s): uterine Medications and Allergies Home Medications Medication Instructions Recorded Confirmed Type Aspirin 81 mg PO DAILY 06/02/14 07/24/18 History Digoxin [Digitek] 125 mcg PO DAILY 06/02/14 07/24/18 History Furosemide [Lasix] 40 mg PO DAILY PRN 06/02/14 07/24/18 History Multivitamins, Thera [Multivitamin] 1 tab PO DAILY 06/02/14 07/24/18 History Potassium Chloride ER [K-Dur 20] 20 meq PO DAILY PRN 06/02/14 07/24/18 History Warfarin [Coumadin] 1 mg PO SUMOWEFR 05/16/18 07/24/18 History Carvedilol 25 mg PO BID 07/24/18 07/24/18 History Nitrofurantoin Monohyd/M-Cryst 100 mg PO BID 07/24/18 07/24/18 History [Macrobid] Warfarin [Coumadin] 2 mg PO TUTHSA 07/24/18 07/24/18 History Allergies Allergy/AdvReac Type Severity Reaction Status Date / Time No Known Allergies Allergy Verified 07/24/18 15:16 Physical Exam Vitals: Vital Signs Temp Pulse Pulse Resp BP BP Pulse Ox 07/25/18 10:46 16 07/25/18 10:19 98.2 F 80 16 156/50 97 07/25/18 00:05 17 07/24/18 23:58 97.8 F 67 17 189/77 93 L 07/24/18 20:42 97.9 F 60 16 161/57 96 07/24/18 20:40 97.9 F 60 16 161/57 96 07/24/18 20:20 49 L 16 07/24/18 18:29 97.5 F L 51 L 16 172/93 97 07/24/18 17:59 98.0 F 47 L 16 151/70 97 07/24/18 17:49 98.1 F 46 L 16 162/58 96 07/24/18 17:04 97.4 F L 44 L 16 168/67 97 07/24/18 16:48 97.9 F 46 L 16 158/77 96 07/24/18 15:41 52 L 16 145/80 97 07/24/18 14:02 98.2 F 50 L 18 123/52 98 Intake and Output 07/24/18 07/25/18 07/25/18 22:59 06:59 14:59 Intake Total 1989 Balance 1989 Intake: Intake, IV Titration 1300 Amount Sodium Chloride 0.9% 1, 800 000 ml @ 100 mls/hr IV . Q10H ONE Rx#:[id number] Sodium Chloride 0.9% 500 500 ml 500 ml @ 999 mls/hr IV .Q31M STA Rx#:[id number] Oral 380 Blood Product 310 Rc Pheresis 2 As3 Unit 310 [id number] Other: Voiding Method Toilet # Voids 1 Results 07/25/18 02:56 07/24/18 14:39 Cardiac Enzymes 07/24/18 Range/Units 14:39 AST 21 (14-36) U/L Coagulation 07/24/18 Range/Units 14:39 PT 20.3 H (9.0-12.0) sec APTT 26.2 (22.0-30.0) sec CBC 07/24/18 07/25/18 Range/Units 14:39 02:56 WBC 6.6 8.4 (3.8-10.6) k/uL RBC 3.16 L 3.22 L (3.80-5.40) m/uL Hgb 7.0 L 7.4 L (11.4-16.0) gm/dL Hct 23.4 L 24.7 L (34.0-46.0) % Plt Count 212 209 (150-450) k/uL Comprehensive Metabolic Panel 07/24/18 Range/Units 14:39 Sodium 139 (137-145) mmol/L Potassium 5.0 (3.5-5.1) mmol/L Chloride 108 H (98-107) mmol/L Carbon Dioxide 21 L (22-30) mmol/L BUN 22 H (7-17) mg/dL Creatinine 1.24 H (0.52-1.04) mg/dL Glucose 108 H (74-99) mg/dL Calcium 10.0 (8.4-10.2) mg/dL AST 21 (14-36) U/L ALT 23 (9-52) U/L Alkaline Phosphatase 81 (38-126) U/L Total Protein 6.4 (6.3-8.2) g/dL Albumin 3.5 (3.5-5.0) g/dL Current Medications Generic Name Dose Route Start Last Admin Trade Name Freq PRN Reason Stop Dose Admin Albuterol Sulfate 2.5 mg 07/25/18 09:06 Ventolin Nebulized INHALATION RT-QID PRN Shortness Of Breath Or Wheezing Aspirin 81 mg 07/25/18 09:00 07/25/18 10:26 Aspirin PO 81 mg DAILY ANTONIO Administration Azithromycin 500 mg 07/25/18 09:15 07/25/18 10:26 Zithromax PO 500 mg DAILY ANTONIO Administration Furosemide 40 mg 07/25/18 09:00 07/25/18 10:26 Lasix PO 40 mg DAILY PRN Administration SWELLING Miscellaneous Information 0 each 07/25/18 06:44 Coumadin Per Pharmacy MISCELLANE DIRECTED PRN P& T Multivitamins 1 each 07/25/18 12:00 07/25/18 10:26 Theragran PO 1 each DAILY@1200 [facility] Administration Pantoprazole Sodium 40 mg 07/26/18 07:30 Protonix PO AC-BRKFST [facility] Warfarin Sodium 1 mg 07/25/18 21:00 Coumadin PO DAILY@1800 [facility] Zolpidem Tartrate 5 mg 07/24/18 22:50 07/24/18 23:38 Ambien PO 5 mg HS PRN Administration sleep Intake and Output 07/24/18 07/25/18 07/25/18 22:59 06:59 14:59 Intake Total 1989 Balance 1989 Intake: Intake, IV Titration 1300 Amount Sodium Chloride 0.9% 1, 800 000 ml @ 100 mls/hr IV . Q10H ONE Rx#:[id number] Sodium Chloride 0.9% 500 500 ml 500 ml @ 999 mls/hr IV .Q31M STA Rx#:[id number] Oral 380 Blood Product 310 Rc Pheresis 2 As3 Unit 310 [id number] Other: Voiding Method Toilet # Voids 1 07/25/18 02:56 07/24/18 14:39
[2018-07-25] MEDS ORDERED: ACETAMINOPHEN TAB 500 MG TAB PO PRN (15:15)
[2018-07-25] MEDS ORDERED: NAPROXEN 250 MG TAB PO PRN (16:00)
--- NOTE | 2018-07-25 17:16 | ECHOF ---
Referral Reason:LVF MEASUREMENTS -------- HEIGHT: 154.9 cm WEIGHT: 52.6 kg BP: RVIDd: 2.9 cm (< 3.3) IVSd: 1.4 cm (0.6 - 1.1) LVIDd: 3.4 cm (3.9 - 5.3) LVPWd: 1.8 cm (0.6 - 1.1) IVSs: 1.6 cm LVIDs: 3.2 cm LVPWs: 1.5 cm LA Diam: 6.5 cm (2.7 - 3.8) LAESV Index (A-L): 78.80 ml/m Ao Diam: 3.0 cm (2.0 - 3.7) AV Cusp: 0.7 cm (1.5 - 2.6) LA Diam: 4.9 cm (2.7 - 3.8) MV EXCURSION: 11.063 mm (> 18.000) MV EF SLOPE: 22 mm/s (70 - 150) EPSS: 1.1 cm AV maxP.92 mmHg AV meanP.96 mmHg AR PHT: 397 ms RAP: 15.00 mmHg RVSP: 72.95 mmHg FINDINGS -------- Sinus rhythm. This was a technically adequate study. The left ventricular size is normal. There is moderate concentric left ventricular hypertrophy. O verall left ventricular systolic function is low-normal with, an EF between 50 - 55 %. The right ventricle is normal in size. The left atrium is markedly dilated. LA is severely dilated >40 ml/m2 The right atrial size is normal. Aortic valve is trileaflet and is moderately thickened. There is mild aortic regurgitation. There is moderate aortic stenosis present. Peak/mean gradient across the Aortic Valve is 40.92mmHg / 21. 96mmHg. The mitral valve leaflets are moderate to severely thickened. Moderate mitral regurgitation is pres ent. Moderate mitral stenosis. Moderate to severe tricuspid regurgitation present. There is moderate to severe pulmonary hypertens ion. The right ventricular systolic pressure, as measured by Doppler, is 72.95mmHg. Trace/mild (physiologic) pulmonic regurgitation. The aortic root size is normal. There is no pericardial effusion. CONCLUSIONS -------- 1. The left ventricular size is normal. 2. There is moderate concentric left ventricular hypertrophy. 3. Overall left ventricular systolic function is low-normal with, an EF between 50 - 55 %. 4. The right ventricle is normal in size. 5. The left atrium is markedly dilated. 6. LA is severely dilated >40 ml/m2 7. The right atrial size is normal. 8. Aortic valve is trileaflet and is moderately thickened. 9. There is mild aortic regurgitation. 10. There is moderate aortic stenosis present. 11. Peak/mean gradient across the Aortic Valve is 40.92mmHg / 21.96mmHg. 12. The mitral valve leaflets are moderate to severely thickened. 13. Moderate mitral regurgitation is present. 14. Moderate to severe tricuspid regurgitation present. 15. There is moderate to severe pulmonary hypertension. 16. The right ventricular systolic pressure, as measured by Doppler, is 72.95mmHg. 17. Trace/mild (physiologic) pulmonic regurgitation. 18. The aortic root size is normal. 19. There is no pericardial effusion. [employer]: Rosalba Elliott RDCS
[2018-07-25] MEDS ORDERED: WARFARIN 1 MG TAB PO SCH (21:00)
[2018-07-26 07:26] LABS: Anisocytosis Slight; HCT 24.2 % (34.0-46.0); HGB 7.3 gm/dL (11.4-16.0); Hypochromasia Marked; MCHC 30.4 g/dL (31.0-37.0); MCV 75.6 fL (80.0-100.0); Mean Platelet Volume 6.9; Microcytosis Moderate; Platelet Count 215 k/uL (150-450); Poikilocytosis Moderate; RDW 18.7 % (11.5-15.5); WBC 7.5 k/uL (3.8-10.6)
[2018-07-26] MEDS ORDERED: PANTOPRAZOLE 40 MG TABLET PO SCH (07:30)
[2018-07-26 07:35] LABS: Albumin 3.2 g/dL (3.5-5.0); Calcium 9.7 mg/dL (8.4-10.2); Potassium 4.1 mmol/L (3.5-5.1)
[2018-07-26 07:46] VITALS: BP 175/53; PULSE 61; RESP 17; TEMP 98
[2018-07-26] MEDS: MULTIVITAMINS, THERA 1 EACH TAB PO SCH (08:42)
[2018-07-26] MEDS: AZITHROMYCIN 500 MG TAB PO SCH (08:42)
[2018-07-26] MEDS: FUROSEMIDE 40 MG TAB PO PRN (08:43)
[2018-07-26] MEDS ORDERED: CARVEDILOL 6.25 MG TAB PO SCH (09:00)
[2018-07-26] MEDS ORDERED: amLODIPine 5 MG TAB PO SCH (09:45)
--- NOTE | 2018-07-26 10:32 | P.PN ---
Subjective Progress Note Date: 07/26/18 This is an 82-year-old female patient with past medical history of chronic atrial fibrillation maintained on Coumadin, hypertension, hyperlipidemia, coronary artery disease, dementia. Patient follows with a Dr. Roche in [place] is her admission nurse but she has not been able to follow-up as it is too far for her to travel. Patient has had long-term atrial fibrillation and has been on digoxin for long period of time. Family gives history that Dr. Mckoy placed her on Coreg 2 months ago. She has had bradycardia and last week family decrease the Coreg in half but this was resumed back at full dose by Dr. Mckoy. Patient has continued to have bradycardia for the past couple weeks. Patient came into the hospital due to back pain that seems to be chronic and underwent x-rays of the lumbar spine and thoracic spine that found multilevel severe degenerative disc disease. Patient's initial hemoglobin was low at 7 and patient was transfused 1 unit of packed RBCs. Repeat hemoglobin is at 7.4. Her INR is at 2.1 and she has been continued on Coumadin. TSH 4.130. ProBNP 3640. Urinalysis was negative for infection. Initial dig level was 1.8 and repeat 1.1. Digoxin and Coreg have been on hold. Chest x-ray reveals cardiomegaly with no definite acute infiltrate. Correlate for COPD. Blood pressure 161/75 and pulse ox 96% on room air. Influenza testing has been negative. Patient's heart rates have been running down to 39 during the evening and today in the low 60s. The patient has had increased shortness of breath last evening. EKG reveals atrial fibrillation at rate of 70. Social history: The patient is a nonsmoker, no illicit drug use, no alcohol use. She lives at home with her Complexa and has a paid caregiver in the morning family in the evenings. She does not have home O2. No CPAP. 07/26: Patient's respiratory status is improved from yesterday. She has been up and ambulating with physical therapy in the hallway and seems to do quite well. Patient is seen without oxygen and does not appear dyspneic. Heart rate during the night running 48-50 but did not go any lower. This morning she is running 60s to 70s. Echocardiogram reveals EF of 50-55%, moderate aortic stenosis, moderate mitral regurgitation, moderate to severe tricuspid regurgitation, moderate to severe pulmonary hypertension. Her blood pressure is also elevated at 175/53. We will plan to add amlodipine 5 mg daily. Due to her low hemoglobin and fall risk, do not recommend anticoagulation with Coumadin at this time. This can be reevaluated by her primary admission nurse. Family has known of multi valvular heart disease and plan is for conservative management. hemoglobin today is 7.3, BUN 26 and creatinine 1.24. Physical exam: Gen: This is an 82-year-old female. She is in recliner and appears to be in no respiratory distress. HEENT: Head is atraumatic, normocephalic. Pupils equal, round. Sclerae is anicteric. NECK: Supple. No JVD. No lymphadenopathy. No thyromegaly. LUNGS: Diminished bilaterally. No intercostal retractions. HEART: Irregularly irregular. Systolic murmur. ABDOMEN: Soft. Bowel sounds are present. No masses. No tenderness. EXTREMITIES: No pedal edema. No calf tenderness. NEUROLOGICAL: Patient is awake, alert and oriented x3. Cranial nerves 2 through 12 are grossly intact. Assessment: Acute blood loss anemia status post transfusion Significant bradycardia Chronic atrial fibrillation Hypertension Hyperlipidemia Coronary artery disease Shortness of breath secondary to bronchitis Dementia Back pain secondary to severe degenerative disc disease Frequent falls Valvular heart disease with moderate aortic stenosis, moderate mitral regurgitation, moderate to severe tricuspid regurgitation and moderate to severe pulmonary hypertension Plan: Digoxin will be discontinued completely. Coreg 6.25 mg twice daily to be started today. Discontinue Coumadin due to low hemoglobin and fall risk. To be reevaluated by her admission nurse. Add amlodipine 5 mg daily. Follow-up with primary admission nurse after discharge. Nurse practitioner note has been reviewed, I agree with documented findings and plan of care. Patient was seen and examined. Objective - Vital Signs Vital signs: Vital Signs Temp 98.0 F 07/26/18 07:00 Pulse 61 07/26/18 07:00 Resp 17 07/26/18 07:00 BP 175/53 07/26/18 07:00 Pulse Ox 98 07/26/18 07:00 Intake & Output 07/25/18 07/26/18 07/26/18 18:59 06:59 18:59 Intake Total 760 Balance 760 Intake: Oral 760 Other: Voiding Method Toilet # Voids 1 2 - Labs CBC & Chem 7: 03/17/19 06:40 07/26/18 06:40 Labs: Abnormal Lab Results - Last 24 Hours (Table) 07/26/18 07/26/18 Range/Units 06:40 06:40 RBC 3.20 L (3.80-5.40) m/uL Hgb 7.3 L (11.4-16.0) gm/dL Hct 24.2 L (34.0-46.0) % MCV 75.6 L (80.0-100.0) fL MCH 23.0 L (25.0-35.0) pg MCHC 30.4 L (31.0-37.0) g/dL RDW 18.7 H (11.5-15.5) % Chloride 108 H (98-107) mmol/L BUN 26 H (7-17) mg/dL Creatinine 1.24 H (0.52-1.04) mg/dL Total Protein 6.0 L (6.3-8.2) g/dL Albumin 3.2 L (3.5-5.0) g/dL
--- NOTE | 2018-07-26 12:28 | P.DS ---
Providers Date of admission: 07/24/18 16:11 Expected date of discharge: 07/26/18 Attending physician: Leticia Payton Consults: 07/24/18 16:10 Consult Physician Urgent Consulting Provider: [facility] Consult Reason/Comments: Bradycardia Do you want consulting provider notified?: Yes Primary care physician: [facility] Course: This is a 78-year-old female with a past medical history of atrial fibrillation, hypertension, hyperlipidemia, coronary artery disease and dementia. Patient was brought to the emergency department by her granddaughter for back pain secondary to a fall earlier in the week. Family states patient has progressively been declining over the last month she's had over a 15 pound weight loss, has been more confused and falling at least 3 times a week. Her hemoglobin was 7.0, she is on Coumadin for anticoagulation for her atrial fibrillation, INR was 2.1, PTT 20.3. She did receive 1 unit of packed red blood cells. Repeat hemoglobin 7.4, hematocrit 24.7, BUN 22, creatinine 1.24, stool occult was negative, urinalysis was negative for any infection. EKG shows atrial fibrillation with slow response at 50 bpm, no ST segment elevation or depression. Chest x-ray did not show any acute abnormalities. Thoracic x-ray showed diffuse osteopenia and multilevel severe degenerative disc disease, lumbar spine show diffuse osteopeni a with multilevel facet arthropathy and degenerative disc disease, no compression deformities noted. Patient denies any chest pain, positive for shortness breath and audible wheezing, no palpitations, no nausea, vomiting, or diarrhea or dark tarry stools, no abdominal pain. Cardiology consulted for a.fib with bradycardia. 07/26: Patient evaluated this morning. Patient remains afebrile, heart rate running in the 60s, blood pressure 175/53, 90% on room air. Hemoglobin 7.3, BUN 26, creatinine 1.24, influenza screening was negative. Cardiology consult appreciated, will discontinue aspirin and Digoxin completely and restart Coreg this morning, Coumadin still on hold. Patient is hypertensive, Amlodipine 5mg was added. Echocardiogram showed ejection fraction between 50-55%, moderate left ventricular hypertrophy, mild aortic regurgitation, moderate aortic stenosis, moderate mitral regurgitation, moderate coronary hypertension, and severe tricuspid regurgitation. Patient will be discharged home, will repeat CBC in the next week as outpatient. Discharge diagnoses 1. Shortness of breath secondary to bronchitis. 2. Acute blood loss anemia s/p 1 unit of PRBC. 3. Severe protein calorie malnutrition secondary to decreased oral and dietary intake related to dementia. 4. Back pain secondary to fall. 5. Atrial fibrillation with bradycarida. 6. Hypertension. 7. Dementia with worsening symptoms. The above impression and plan of care have been discussed and directed by signing physician. Birgit Schuster nurse practitioner acting as scribe for signing physician. Patient Condition at Discharge: Good Plan - Discharge Summary New Discharge Prescriptions: New Carvedilol [Coreg] 6.25 mg PO BID-W/MEALS #60 tab amLODIPine [Norvasc] 5 mg PO DAILY #30 tab Multivitamins, Thera [Multivitamin (formulary)] 1 each PO DAILY@1200 tab Azithromycin [Zithromax] 500 mg PO DAILY #3 tab Acetaminophen Tab [Tylenol] 1,000 mg PO Q8HR PRN 30 Days tab PRN Reason: Fever And/ Or Pain Continue Potassium Chloride ER [K-Dur 20] 20 meq PO DAILY PRN PRN Reason: SWELLING Furosemide [Lasix] 40 mg PO DAILY PRN PRN Reason: SWELLING Multivitamins, Thera [Multivitamin (formulary)] 1 tab PO DAILY Discontinued Aspirin 81 mg PO DAILY Digoxin [Digitek] 125 mcg PO DAILY Warfarin [Coumadin] 1 mg PO SUMOWEFR Warfarin [Coumadin] 2 mg PO TUTHSA Nitrofurantoin Monohyd/M-Cryst [Macrobid] 100 mg PO BID Carvedilol 25 mg PO BID Discharge Medication List Furosemide [Lasix] 40 mg PO DAILY PRN 06/02/14 [History] Multivitamins, Thera [Multivitamin (formulary)] 1 tab PO DAILY 06/02/14 [History] Potassium Chloride ER [K-Dur 20] 20 meq PO DAILY PRN 06/02/14 [History] Acetaminophen Tab [Tylenol] 1,000 mg PO Q8HR PRN 30 Days tab 07/26/18 [Rx] Azithromycin [Zithromax] 500 mg PO DAILY #3 tab 07/26/18 [Rx] Carvedilol [Coreg] 6.25 mg PO BID-W/MEALS #60 tab 07/26/18 [Rx] Multivitamins, Thera [Multivitamin (formulary)] 1 each PO DAILY@1200 tab 07/26/18 [Rx] amLODIPine [Norvasc] 5 mg PO DAILY #30 tab 07/26/18 [Rx] Follow up Appointment(s)/Referral(s): Mihir Mckoy DO [Primary Care Provider] - 1-2 days (Staff unable to set up follow up appointment due to office being closed--patient to please call Friday to set up a follow up appointment) Patient Instructions/Handouts: Anemia (DC) Activity/Diet/Wound Care/Special Instructions: activity as tolerated heart healthy diet as tolerated Discharge Disposition: HOME SELF-CARE
== END 2018-07-26 12:14 | disposition home or self-care (01) | DRG 202 ==
LOC: EC 13:48 → 4SSUR 16:11
PROVIDERS: ADMIT Family Medicine; ATTEND Family Medicine
PROC: 30233N1 Transfusion of Nonautologous Red Blood Cells into Peripheral Vein, Percutaneous Approach (ICD-10-PCS; principal; 2018-07-24)
DX: J40 Bronchitis, not specified as acute or chronic (principal); E43 Unspecified severe protein-calorie malnutrition; D62 Acute posthemorrhagic anemia; Z68.21 Body mass index [BMI] 21.0-21.9, adult; E78.5 Hyperlipidemia, unspecified; F03.90 Unspecified dementia, unspecified severity, without behavioral disturbance, psychotic disturbance, mood disturbance, and anxiety; R00.1 Bradycardia, unspecified; G47.00 Insomnia, unspecified; I08.3 Combined rheumatic disorders of mitral, aortic and tricuspid valves; I11.0 Hypertensive heart disease with heart failure; I25.10 Atherosclerotic heart disease of native coronary artery without angina pectoris; I27.20 Pulmonary hypertension, unspecified; I48.2 Chronic atrial fibrillation; I50.9 Heart failure, unspecified; K21.9 Gastro-esophageal reflux disease without esophagitis; M51.34 Other intervertebral disc degeneration, thoracic region; M51.36 Other intervertebral disc degeneration, lumbar region; M85.88 Other specified disorders of bone density and structure, other site; M46.96 Unspecified inflammatory spondylopathy, lumbar region; R29.6 Repeated falls; W19.XXXA Unspecified fall, initial encounter; I25.2 Old myocardial infarction; Z79.01 Long term (current) use of anticoagulants; Z79.82 Long term (current) use of aspirin; Z79.899 Other long term (current) drug therapy; Z85.42 Personal history of malignant neoplasm of other parts of uterus; Z86.73 Personal history of transient ischemic attack (TIA), and cerebral infarction without residual deficits; Z90.710 Acquired absence of both cervix and uterus; Z91.81 History of falling
CPT/HCPCS: 36415; 51701; 71046; 72070; 72110; 80053; 80162; 81003; 82272; 83735; 83880; 84443; 85025; 85027; 85610; 85730; 86850; 86900; 86901; 86920; 87502; 93005; 93306; 94640; 96361; 96374; 99285